=== PATIENT | female | born 1990 | race Caucasian/White ===

== ENCOUNTER 2020-04-01 04:56 | Inpatient (IN) | payer OTHER, SELFPAY ==
[2020-04-01] VITALS (72 sets, daily range): BP systolic 82–149; BP diastolic 50–99; PULSE 70–143; RESP 14–18; TEMP 36.7–37.4; O2SAT 89–100; BMI 27.1
--- NOTE | 2020-04-01 06:00 | WPDOBADMIT ---
Obstetrics - Admit Note Admission Note: record reviewed. Additions to the history and/or subsequent changes in the physical findings follow. 30 y/o at 39 3/7 weeks here for scheduled induction of labor. GBS neg. AVSS NST reactive TOCO: contractions irregularly ABD soft, nontender, gravid, vertex EXT nontender Cervix 3/50/-2. AROM with clear fluid. Vertex. A: IUP at term with favorable cervix, desiring induction of labor. P: Oxytocin. Anticipate .
[2020-04-01] MEDS: OXYTOCIN 30 UNITS/NS 500 ML 30 UNITS/500 ML BAG IV CONT (06:03)
[2020-04-01 06:17] LABS: Basophils Percent Auto 0.4 % (0.2-1.2); Eosinophils Absolute Auto 0.1 K/mm3 (0-0.3); Eosinophils Percent Auto 0.8 % (0-4.4); Hematocrit 31.2 % (37.0-47.0); Immature Granulocyte Absolute 0.29 K/mm3 (0.00-0.031); Lymphocytes Absolute Auto 1.73 K/mm3 (0.9-3.2); Lymphocytes Percent Auto 23.7 % (18.3-44.2); Mean Corpuscular HGB Conc 35.3 g/dl (32-36); Mean Corpuscular Volume 90.7 fl (80-100); Mean Platelet Volume 9.5 fl (7.4-10.4); Monocytes Absolute Auto 0.8 K/mm3 (0.1-0.6); Monocytes Percent Auto 11.4 % (2.6-8.5); Neutrophils Absolute Auto 4.4 K/mm3 (1.3-6.7); Neutrophils Percent Auto 59.7 % (45.5-73.1); Platelet Count Result 150 k/mm3 (150-375); Red Blood Count 3.44 M/mm3 (4.2-5.4); Red Cell Distribution Width 13.6 % (11.5-14.5); White Blood Count 7.3 K/mm3 (4.5-10.0)
[2020-04-01] MEDS: LACTATED RINGERS 1,000 ML 125 ML IV CONT ×2 (06:38→10:39)
[2020-04-01 06:53] LABS: HIV 1/2 Ab P24 Ag Result Negative (Negative)
[2020-04-01 06:58] LABS: Rapid Plasma Reagin Non-Reactive (NonReactive)
--- NOTE | 2020-04-01 11:03 | WPDANESEPP ---
Anes - Eval Pre Procedure Procedure: Labor Epidural Date/Time: 04/01/20 11:03 Surgeon: Dr Wilcox Preop Diagnosis: Labor Pain Pre Op Diagnosis: Induction of Labor Patient Data Age: 30 Gender: F Height: 5 ft 8 in Weight: 81 kg Last Vital Signs Temp 37.2 C 04/01/20 10:05 Pulse 90 04/01/20 11:00 BP 119/79 04/01/20 11:00 Pulse Ox 98 04/01/20 11:00 Allergies Allergy/AdvReac Type Severity Reaction Status Date / Time No Known Allergies Allergy Unverified 07/20/17 19:48 Home Medications Medication Instructions Recorded Confirmed Type PNV cmb#95-ferrous fumarate-FA 1 tablet PO DAILY 03/08/20 03/08/20 History [] Laboratory Tests 04/01/20 04/01/20 04/01/20 05:40 05:40 05:40 WBC 7.3 K/mm3 K/mm3 (4.5-10.0) RBC 3.44 M/mm3 L M/mm3 (4.2-5.4) Hgb 11.0 g/dL L g/dL (12.0-15.0) Hct 31.2 % L % (37.0-47.0) MCV 90.7 fl fl (80-100) MCH 32.0 pg pg (26-34) MCHC 35.3 g/dl g/dl (32-36) RDW 13.6 % % (11.5-14.5) Plt Count 150 k/mm3 k/mm3 (150-375) MPV 9.5 fl fl (7.4-10.4) Immature Gran % (Auto) 4.0 % H % (0-0.5) Neut % (Auto) 59.7 % % (45.5-73.1) Lymph % (Auto) 23.7 % % (18.3-44.2) Rolette % (Auto) 11.4 % H % (2.6-8.5) Eos % (Auto) 0.8 % % (0-4.4) Baso % (Auto) 0.4 % % (0.2-1.2) Lymph # (Auto) 1.73 K/mm3 K/mm3 (0.9-3.2) Rolette # (Auto) 0.8 K/mm3 H K/mm3 (0.1-0.6) Eos # (Auto) 0.1 K/mm3 K/mm3 (0-0.3) Baso # (Auto) 0.0 K/mm3 K/mm3 (0.0-0.1) Abs Immat Gran (auto) 0.29 K/mm3 H K/mm3 (0.00-0.031) Absolute Neuts (auto) 4.4 K/mm3 K/mm3 (1.3-6.7) Absolute Nucleated RBC 0.0 K/mm3 K/mm3 (0.0-0.012) Nucleated RBC % 0.0 % % (0.0-0.2) RPR Non-reactive (NonReactive) HIV 1&2 Ab/P24 Ag 4thGn Negative (Negative) Blood Type Antibody Screen 04/01/20 05:40 WBC RBC Hgb Hct MCV MCH MCHC RDW Plt Count MPV Immature Gran % (Auto) Neut % (Auto) Lymph % (Auto) Rolette % (Auto) Eos % (Auto) Baso % (Auto) Lymph # (Auto) Rolette # (Auto) Eos # (Auto) Baso # (Auto) Abs Immat Gran (auto) Absolute Neuts (auto) Absolute Nucleated RBC Nucleated RBC % RPR HIV 1&2 Ab/P24 Ag 4thGn Blood Type A Positive Antibody Screen Negative Patient hx anesthesia problems: none and other (one sided block with last labor epidural with residual weak/numb leg for 24-36 hours) Family hx anesthesia problems: none PMFSH Family History Family History Other No pertinent family history Social History Social History Smoking status: Never smoker Substance use: never Gender identity (if verbalized by the patient): Female Spiritual care concerns: No Exam Day of Procedure 04/01/20 11:03 Patient weight: normal Heart: regular rate and rhythm Lungs: normal air movement Airway: Mallampati scale class II Neurological: alert and oriented
--- NOTE | 2020-04-01 12:50 | PM.OBPNLAB ---
Pain Control Date/time seen: 04/01/20 14:11 Comments: Getting more comfortable after epidural. Pelvic Exam Dilation (cm): 6 Effacement (%): 90 station: -1 Contractions Contraction frequency: 3 Status status: Category l Assessment and Plan Plan: continuous present management
--- NOTE | 2020-04-01 14:12 | P.PCNOB_ITS ---
OB - Delivery Note Procedure Delivery date: 04/01/20 Procedure: Induction of labor with Delivery monitor: external FHT and external uterine Route of delivery: Laceration Description: Perineal - 2nd Degree Delivery repair: vicryl (3-0) Specimen: Yes (cord blood) Quantitative Blood Loss (ml): 380 Anesthesia type: Local (1% lidocaine to perineum) Disposition: PACU Narrative: 30 y/o at 39 3/7 weeks gestation who presented to the [facility] for induction of labor. Oxytocin was administered intravenously. Amniotomy was performed with return of clear fluid. She received an epidural for pain control. Her labor progressed and her cervix dilated completely. She pushed with good effort and delivered the 's head to the perineum, followed by the body. The nose and mouth were bulb suctioned. After a delay, the cord was clamped and cut. The was handed off the field. Cord blood was collected. The placenta delivered spontaneously and was grossly normal in appearance. The usual 3 vessel cord was noted. A second degree midline perineal laceration was sustained. This was infiltrated with 10 mL of 1% lidocaine and reapproximated using 3 0 Vicryl in the usual layered fashion. Excellent hemostasis resulted as did excellent reapproximation of the normal anatomy. Needle and instrument counts were correct. The patient was taken to recovery room in stable condition. The infant went to the nursery in stable c ondition. I was present and scrubbed for the entire delivery. [place] Baby Date of : 04/01/20 Time of : 13:58 Weeks of gestation at delivery: 39 Infant gender: Female Weight (pounds): 7 Weight (ounces): 10 presentation: vertex position: Left Occiput Anterior Placenta delivery description: Spontaneous and Normal Configuration cord vessel description: 3 Vessels score one minute: 9 score five minutes: 9
--- NOTE | 2020-04-01 14:15 | PM.OBDSVD ---
DS: Admitting Diagnosis Admitting Diagnosis Admitting Diagnosis: 1) IUP at 39 3/7 weeks 2) favorable cervix DS: Discharge Diagnosis Discharge Diagnosis (1) (normal spontaneous vaginal delivery): Code(s): O80 - Encounter for full-term uncomplicated delivery Status: Acute OB - DS: Summary OB Procedures : None OB Procedures Intrapartum: Spontaneous Vag Delivery OB Procedures: : None DS: Data Data Completed and Pending Labs on day of discharge: Labs from last 24 hours 04/01/20 04/01/20 04/01/20 05:40 05:40 05:40 WBC 7.3 RBC 3.44 L Hgb 11.0 L Hct 31.2 L MCV 90.7 MCH 32.0 MCHC 35.3 RDW 13.6 Plt Count 150 MPV 9.5 Immature Gran % (Auto) 4.0 H Neut % (Auto) 59.7 Lymph % (Auto) 23.7 Warrick % (Auto) 11.4 H Eos % (Auto) 0.8 Baso % (Auto) 0.4 Lymph # (Auto) 1.73 Warrick # (Auto) 0.8 H Eos # (Auto) 0.1 Baso # (Auto) 0.0 Abs Immat Gran (auto) 0.29 H Absolute Neuts (auto) 4.4 Absolute Nucleated RBC 0.0 Nucleated RBC % 0.0 RPR Non-reactive HIV 1&2 Ab/P24 Ag 4thGn Blood Type A Positive Antibody Screen Negative 04/01/20 05:40 WBC RBC Hgb Hct MCV MCH MCHC RDW Plt Count MPV Immature Gran % (Auto) Neut % (Auto) Lymph % (Auto) Warrick % (Auto) Eos % (Auto) Baso % (Auto) Lymph # (Auto) Warrick # (Auto) Eos # (Auto) Baso # (Auto) Abs Immat Gran (auto) Absolute Neuts (auto) Absolute Nucleated RBC Nucleated RBC % RPR HIV 1&2 Ab/P24 Ag 4thGn Negative Blood Type Antibody Screen Discharge Plan Discharge Attending physician on discharge: Nahun Wilcox Discharging Clinician: Nahun Wilcox Patient Disposition: Home, Self-Care Activity: no straining and pelvic rest Diet: regular Wound Care Instructions: follow printed instructions Discharge Instructions: Education: Mom and Baby Guide Given to: Mother Follow-Up: Call your delivering provider's office for an appointment to be seen in: 4 Weeks Mom and baby should come to the [facility] for the follow-up appointment. Appointment Date/Time: April 05, 2020 at 11:00 am What to expect at your follow-up visit: Blood Pressure Check Call [phone] if you are unable to keep your appointment time. BREAST CARE: * Wear a snug supportive bra. * For engorgement discomfort: Bottle Feeding: * May apply ice packs PERINEAL CARE: * Until bleeding stops, use your tamir bottle after urinating * Change your pad frequently throughout the day * You may take sitz baths several times a day (fill your bathtub with warm water and soak for 20 minutes.) Do NOT bathe in the water * No tub baths until seen by your physician - You may shower ACTIVITY: * Rest as much as possible. * Do not exercise or lift anything heavier than your baby (such as laundry or other children.) * Avoid stairs or driving as much as possible. * Do not put anything into the vagina. No douching, tampons, or sexual activity until seen by physician. NOTIFY PHYSICIAN IF YOU HAVE ANY QUESTIONS OR IF ANY OF THE FOLLOWING SYMPTOMS OCCUR: * If your perineum becomes red, swollen, or more painful than what you have experienced in the hospital. * If your vaginal bleeding becomes foul smelling. * If your vaginal bleeding becomes more heavy than a period or if your bleeding changes from pink to bright red. However, you may pass an occasional walnut-sized clot once or twice for the first week . * If you experience a sharp, shooting pain in you calves. * If you discover a hard, reddened area on your breast or if you experience flu-like symptoms. * If you have a fever of 100.4 or greater DIET: * Eat regular, well-balanced meals. * Drink plenty of fluids daily. If , drink to thirst.Call or return if temperature above 100.4? F, increased abdominal pain, increased vaginal
[2020-04-01] MEDS: HYDROcodone/acetaminophen (*CRX) 5-325 MG TABLET 1 TAB PO ×2 (15:54→22:27)
[2020-04-01] MEDS: IBUPROFEN 600 MG TABLET PO ×2 (15:54→22:28)
[2020-04-01] MEDS: WITCH HAZEL 40 PADS 1 PAD TOPICAL (16:11)
[2020-04-01] MEDS: BENZOCAINE 20% AER SPR (*SP) 56 GM CAN 1 SPRAY TOPICAL (16:12)
--- NOTE | 2020-04-01 17:17 | PC.NURSE ---
Patient transferred to post room #290 via wheelchair. Support person present. Oriented to unit, room, information board, rooming in, admission packet and security measures. Patient verbalizes understanding.
[2020-04-02] MEDS: HYDROcodone/acetaminophen (*CRX) 5-325 MG TABLET 1 TAB PO ×3 (04:59→23:25)
[2020-04-02] MEDS: IBUPROFEN 600 MG TABLET PO ×3 (05:00→23:24)
[2020-04-02 06:02] LABS: Hemoglobin 10.6 g/dL (12.0-15.0)
[2020-04-02 07:50] VITALS: BP 127/87; PULSE 80; RESP 18; TEMP 37.3; O2SAT 100
--- NOTE | 2020-04-02 11:43 | WPDANLDPN2 ---
Anes-Prog Note L&D Date/Time: 04/02/20 11:43 Comfortable throughout: labor and delivery Neuraxial method: epidural Epidural/Spinal procedure site: clean & non-tender Neuro status: Neuro function grossly intact. Cardiovascular status: normal Respiratory status: normal Airway patency: baseline Mental status: baseline Post-Op hydration status: normal Vital Signs: Last Vital Signs Temp 37.3 C 04/02/20 07:50 Pulse 80 04/02/20 07:50 Resp 18 04/02/20 07:50 BP 127/87 04/02/20 07:50 Pulse Ox 100 04/02/20 07:50 Pain score (VAS): 0 Post-procedural complaints: none Patient feedback: Patient satisfied with anesthetic care. Other findings: yoana syndrome sx now fully resolved
[2020-04-02] MEDS: DOCUSATE SODIUM 100 MG CAPSULE PO (13:26)
[2020-04-02 20:35] VITALS: BP 144/82; PULSE 75; RESP 16; TEMP 36.7; O2SAT 100
[2020-04-02] MEDS: BENZOCAINE 20% AER SPR (*SP) 56 GM CAN 1 SPRAY TOPICAL (22:28)
[2020-04-02] MEDS: WITCH HAZEL 40 PADS 1 PAD TOPICAL (22:28)
--- NOTE | 2020-04-03 08:00 | PC.NURSE ---
PT introductions made and plan of care discussed per post , pain management, bottle feeding, daily care activities and pending discharge to home. PT verbalized understanding of such care.
[2020-04-03 08:15] VITALS: PULSE 86; RESP 20; O2SAT 100
--- NOTE | 2020-04-03 08:15 | PM.DS ---
DS: Admitting Diagnosis Admitting Diagnosis Admitting Diagnosis: term iup DS: Summary Hospital Course Hospital Course: Patient underwent unremarkable spontaneous vaginal delivery. Hospital course was unremarkable Time Spent with Patient Time attestation: Total time spent providing and/or coordinating discharge services: Patient was admitted and induction of labor on 04/01 20. Her hospital course was unremarkable. She remained afebrile. She was, what in the difficulty, passing gas, ambulating and general without complaints Exam Const: General: no acute distress Eyes: General: appearance normal, both eyes and all related structures Neck: Neck: supple and no JVD Thyroid: thyroid normal Resp: Effort & Inspection: normal respiratory effort Auscultation: clear to auscultation bilaterally Cardio: Rate: regular rate Rhythm: regular rhythm GI: Inspection: non-distended GI Palp: Yes Soft to palpation, No Tenderness to palpation present (GI) and No Guarding due to palpation present (GI) Auscultation: normal bowel sounds : General: Yes bladder normal to palpation External Female Exam: normal external appearance Speculum Exam - Vagina: normal vaginal discharge and No vaginal bleeding Speculum Exam - Cervix: nontender Bimanual exam- vagina & uterus: bladder normal to palpation and No Cervical tenderness present OB/external & speculum: No vaginal bleeding Skin: General skin exam: no rashes or lesions noted Extrem: General: normal to inspection and no edema Psych: Mental Status: mental status grossly normal Affect: normal affect Discharge Plan Discharge Attending physician on discharge: Nahun Wilcox Discharging Clinician: Nahun Wilcox Patient Disposition: Home, Self-Care Activity: no straining and pelvic rest Diet: regular Wound Care Instructions: follow printed instructions Discharge Instructions: Call or return if temperature above 100.4? F, increased abdominal pain, increased vaginal bleeding or any new problems. Stand Alone Forms: General Discharge Information Follow-up/Referrals: Nahun Wilcox MD [Physician] - 6 Weeks Discharge Medications: New ibuprofen 600 mg tablet 600 mg PO Q6H PRN (Reason: cramps) Qty: 30 RF: 0 Continued PNV cmb#95-ferrous fumarate-FA [] 28 mg iron- 800 mcg Tablet 1 tablet PO DAILY RF: 0 Date of admission: 04/01/20 04:56 Primary Care Provider: BisiHelio Admitting Provider: Nahun Wilcox Attending physician on admission: Nahun Wilcox Condition: Stable
--- NOTE | 2020-04-03 08:19 | PM.OBPNVD ---
OB - PN: Subj Subjective Date/time seen: 04/03/20 08:19 Patient comments: no complaints and pain well controlled baby status: doing well and nursing well OB - PN: Obj Data Labs CBC & Chem 7: 04/02/20 04:54 OB - PN A/P Plan day: 2 Plan: routine care, discharge home and follow up 6 weeks Time Spent With Patient Time: Total time spent is greater than 50% in coordination of care (as documented) at patient's floor/unit and/or counseling patient: Time with patient: less than 15 minutes Review of Systems Review of Systems: All systems reviewed & are unremarkable except as noted in HPI and below Exam Const: General: no acute distress Eyes: General: appearance normal, both eyes and all related structures Neck: Neck: supple and no JVD Thyroid: thyroid normal Resp: Effort & Inspection: normal respiratory effort Auscultation: clear to auscultation bilaterally Cardio: Rate: regular rate Rhythm: regular rhythm GI: Inspection: non-distended GI Palp: Yes Soft to palpation, No Tenderness to palpation present (GI) and No Guarding due to palpation present (GI) Auscultation: normal bowel sounds : General: Yes bladder normal to palpation External Female Exam: normal external appearance Speculum Exam - Vagina: normal vaginal discharge and No vaginal bleeding Speculum Exam - Cervix: nontender Bimanual exam- vagina & uterus: bladder normal to palpation and No Cervical tenderness present OB/external & speculum: No vaginal bleeding Skin: General skin exam: no rashes or lesions noted Extrem: General: normal to inspection and no edema Psych: Mental Status: mental status grossly normal Affect: normal affect
[2020-04-03] MEDS: IBUPROFEN 600 MG TABLET PO (08:22)
[2020-04-03] MEDS: DOCUSATE SODIUM 100 MG CAPSULE PO (08:23)
[2020-04-03] MEDS: ACETAMINOPHEN 325 MG TABLET 650 MG PO (08:50)
[2020-04-03 09:00] VITALS: BP 145/81; PULSE 86; RESP 20; TEMP 36.7
[2020-04-05 10:56] VITALS: BP 130/86; PULSE 89; RESP 16; TEMP 36.8; O2SAT 100
== END 2020-04-03 12:02 | disposition home or self-care (01) | DRG 807 ==
LOC: ANHLDR 14:16 → ANHOB2 04-03 10:47 → ANHLDR 04-06 07:51 → ANHOB2 04-06 07:51
PROVIDERS: Admitting Provider Obstetrics & Gynecology; PCP Internal Medicine; Visit Provider Obstetrics & Gynecology
DX: O70.1 Second degree perineal laceration during delivery (principal); Z37.0 Single live birth; Z3A.39 39 weeks gestation of pregnancy
CPT/HCPCS: 36415; 85014; 85018; 85025; 86592; 86703; 86850; 86900; 86901; A9270; G0432; J2590; J2795; J7120